=== PATIENT | female | born 1990 | race Caucasian/White ===

== ENCOUNTER 2017-05-19 05:05 | Emergency (ER) | payer BC ==
[2017-05-19] MEDS ORDERED: IBUPROFEN 600 MG TAB PO ONE (05:39)
--- NOTE | 2017-05-19 05:47 | EDPHY ---
H & P Stated Complaint: 15ft drop from climbing wall-2000hrs, L ankle R foot. Time Seen by Provider: 05/19/17 05:35 HPI/ROS: HPI The patient presents with painful left foot and ankle after a fall off of a climbing wall onto the ground which occurred earlier this evening. She believes she fell 15 feet. She had pain initially, however was able to walk and return home and felt okay. However over the course of the evening her pain has become progressively worse. It is achy and dull in nature in throughout her foot and ankle. It is difficult to bear weight because of the pain. She has noticed over the course of the evening she has had increased swelling of her ankle.. REVIEW OF SYSTEMS Constitutional: No fever, no chills. Genitourinary: No hematuria. Musculoskeletal: No back pain. Skin: No rashes. Neurological: No headache. PMHx: Healthy PHYSICAL General Appearance: Alert, no distress Eyes: Pupils equal and round no pallor or injection ENT, Mouth: Mucous membranes moist Respiratory: Breathing comfortably Neurological: A&O, moves all extremities Skin: Warm and dry, no rashes Musculoskeletal: Neck is supple non tender Extremities: Left ankle there is a small joint effusion, there is limited range of motion secondary to pain, there is tenderness overlying the lateral medial assess, there is tenderness of the dorsum of the foot which is diffuse, there is 2+ DP pulses, brisk cap refill in her toes, sensation is intact to light touch Psychiatric: Patient is oriented X 3, there is no agitation Source: Patient Exam Limitations: No limitations - Personal History LMP (Females 10-55): Extended Cycle BCP/Inj Current Tetanus/Diphtheria Vaccine: Unsure Current Tetanus Diphtheria and Acellular Pertussis (TDAP): Unsure - Medical/Surgical History Hx Asthma: No Hx Chronic Respiratory Disease: No Hx Diabetes: No Hx Cardiac Disease: No Hx Renal Disease: No Hx Cirrhosis: No Hx Alcoholism: No Hx HIV/AIDS: No Hx Splenectomy or Spleen Trauma: No Other PMH: wisdom, ADHD. - Social History Smoking Status: Never smoked Constitutional: Initial Vital Signs Temperature (C) 36.9 C 05/19/17 05:06 Heart Rate 87 05/19/17 05:06 Respiratory Rate 16 05/19/17 05:06 Blood Pressure 122/86 H 05/19/17 05:06 O2 Sat (%) 96 05/19/17 05:06 O2 Delivery Mode Room Air Allergies/Adverse Reactions: No Known Allergies Allergy (Unverified 05/19/17 05:09) Home Medications: Medication Instructions Recorded FOCALIN 05/19/17 Lo Anibalin Fe 1-10 Tablet 05/19/17 Medical Decision Making - Diagnostics Imaging Results: Left foot x-ray three view shows no fracture, no dislocation, interpreted by me , radiology interpretation is pending. Left ankle x-ray three view shows no fracture, no dislocation, interpreted by me , radiology interpretation is pending. Differential Diagnosis: 27-year-old female presents after a fall 15 feet while rock climbing last night. Initially, able to ambulate though with increasing pain throughout the course of the night. Pain is of her left lateral ankle mostly. Differential diagnosis includes ankle fracture, ankle sprain, foot fracture. In the emergency department, patient was medicated with ibuprofen. X-rays were obtained and did not demonstrate any obvious fracture or dislocation. The patient was placed in ankle stirrup splint and crutches. 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 She was given instructions for rest, ice, elevation. - Data Points Medications Given: Discontinued Medications Ibuprofen (Motrin) 600 mg PO EDNOW ONE Stop: 05/19/17 05:40 Last Admin: 05/19/17 05:47 Dose: 600 mg Departure - Departure Disposition: Home, Routine, Self-Care Clinical Impression: Left ankle sprain Condition: Good Instructions: Ankle Sprain (ED), RICE Therapy (ED) Additional Instructions: You should take ibuprofen 400 mg with acetaminophen 650 mg every 6 hours as needed for pain. Please elevated as much as possible. Please follow-up with Orthopedics if the pain continues for more than 1-2 weeks. Referrals: Ger Jay MD [Medical Doctor] - As per Instructions Stand Alone Forms: Work Excuse
[2017-05-19 06:28] VITALS: RESP 18
[2017-05-19 06:44] VITALS: BP 123/76; PULSE 85; TEMP 97.9; O2SAT 96
== END 2017-05-19 06:43 | disposition home or self-care (01) ==
DX: S93.402A Sprain of unspecified ligament of left ankle, initial encounter (principal); W13.8XXA Fall from, out of or through other building or structure, initial encounter; Y99.8 Other external cause status; Y93.39 Activity, other involving climbing, rappelling and jumping off
CPT/HCPCS: L4350